=== PATIENT | male | born 1970 | race Caucasian/White ===

== ENCOUNTER 2023-02-21 08:03 | Outpatient (REF) | payer OTHER, SELFPAY ==
--- NOTE | ~2023-02-21 | MR_ITS ---
EXAMINATION: MRI OF THE BRAIN WITHOUT CONTRAST CLINICAL INFORMATION: Thalamic infarction. COMPARISON: MRI scan of the brain [facility] 09/09/2022. TECHNIQUE: MRI of the brain was obtained using routine sequences without contrast. FINDINGS: No diffusion abnormalities are identified to suggest an acute or subacute infarct. No mass effect or midline shift is seen. There is mild commensurate prominence of the ventricles and sulci consistent with diffuse volume loss. There is a lacunar infarct in the left thalamus in the region of the previously demonstrated acute infarct. The study redemonstrates a few scattered foci of hyperintense T2 and FLAIR signal in the periventricular and subcortical white matter, which are nonspecific. No extra-axial fluid collections are seen. The brainstem and cerebellum are normal. No pathologic magnetic susceptibility artifact is identified on the gradient refocused acquisition. The craniovertebral junction, marrow signal, and midline structures are normal. The major intracranial flow-voids at the level of the tribe of [place] are preserved. The dural venous sinus flow-voids are maintained. The mastoid air cells are well-aerated. There is a small retention cyst in the inferior left maxillary sinus. MR/MR head/brain wo con IMPRESSION: 1. There are no acute bleeds or territorial infarcts. No masses are demonstrated. 2. There are chronic microvascular ischemic changes and there is a chronic infarct in the left thalamus. There is diffuse volume loss.
== END 2023-02-21 08:04 | disposition home or self-care (01) ==
LOC: HO.MRI 08:03
PROVIDERS: Visit Provider Psychiatry & Neurology Neurology
DX: I63.9 Cerebral infarction, unspecified (principal)
CPT/HCPCS: 70551

== ENCOUNTER → 2024-02-19 08:00 | Outpatient (BNV) | payer SELFPAY | PROVIDERS: Emergency Provider Emergency Medicine; Visit Provider Radiology Diagnostic Radiology | DX: S22.32XA Fracture of one rib, left side, initial encounter for closed fracture (principal); M54.2 Cervicalgia; R51.9 Headache, unspecified; R22.32 Localized swelling, mass and lump, left upper limb | CPT/HCPCS: 70450; 70486; 71250; 72125; 73130 ==

== ENCOUNTER 2024-02-26 08:15 | Outpatient (REF) | payer SELFPAY ==
--- NOTE | ~2024-02-26 | XR_ITS ---
CLINICAL HISTORY: M79.642 - Pain in left hand 3 view left hand Comparison: CR/SR - XR HAND LT MIN 3V - 02/19/24 08:14 EST Findings: Lucency at the base of the 5th middle phalanx concerning for nondisplaced fracture. Chronic fracture of the 5th metacarpal shaft. Degenerative changes of the interphalangeal joints and radiocarpal joints. No erosions. No radiopaque foreign body. IMPRESSION: Lucency at the base of the 5th middle phalanx concerning for nondisplaced fracture. Correlate for point tenderness This document has been electronically signed by: Gui Arce MD on 02/27/2024 02:45:39
== END 2024-02-26 08:16 | disposition home or self-care (01) ==
LOC: HO.HOSX 08:15
DX: M79.642 Pain in left hand (principal); S62.627A Displaced fracture of middle phalanx of left little finger, initial encounter for closed fracture; R20.2 Paresthesia of skin
CPT/HCPCS: 26740; 73130; 99202

== ENCOUNTER 2024-02-26 08:15 | Outpatient (AMB) | payer OTHER, SELFPAY ==
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
== END 2024-02-26 09:12 | disposition home or self-care (01) ==
DX: S62.627A Displaced fracture of middle phalanx of left little finger, initial encounter for closed fracture (principal)
CPT/HCPCS: 26740; 99204

== ENCOUNTER 2024-05-21 11:55 | Outpatient (REF) | payer OTHER, SELFPAY ==
[2024-05-21 12:50] LABS: Blood Urea Nitrogen 7 mg/dL (9-16); Estimated Glomerular Filt Rate > 60
--- OUTSIDE RECORDS SUMMARY | 2024-05-21 14:04 | XMS_ITS | Clinical Summary ---
Author Organization [facility] Address [address] [place] [address] Care Team Providers Care Assembly Stock Supervisor Name Role Phone ZohaibCarlos whipple ELISABETH Primary Care Provider [phone] Source Comments PLEASE NOTE, if this patient is a minor, it may be UNLAWFUL to discuss sensitive information that is contained in these records (such as FAMILY PLANNING, MENTAL HEALTH or SUBSTANCE ABUSE) with the minor patient's parent or other person without the patient's specific authorization.[facility] Allergies No known active allergies Medications gabapentin (NEURONTIN) 300 mg capsuleIndicatio ns:Sciatica of right side Take 1 Cap by mouth 3 (three) times daily. 90 Cap 0 05/01/2014 Active Active Problems Problem Noted Date Diagnosed Date Right hip pain 05/01/2014 Family History Relation Name Status Comments Father Alive Mother Alive Social History Tobacco Use Types Packs/Day Years Used Date Smoking Tobacco: Every Day Cigarettes 0.5 15 Smokeless Tobacco: Current Tobacco Cessation:Ready to Q uit: Yes; Counseling Given: Yes Alcohol Use Standard Drinks/Week Comments Yes 0 (1 standard drink = 0.6 oz pur e alcohol) socially Social Connections Answer Date Recorded Social Connections and Isolation 0 10/06/2018 Financial Resource Strain Answer Date R ecorded Financial Resource Strain 0 2018 Stress Answer Date Recorded Stress 0 10/06/2018 Physical Activity Answer Date Recorded Physical Activity 0 10/06/2018 Food Insecurity Answer Date Recorded Food 0 10/06/2018 Transportation Needs Answer Date Record ed Transportation 0 10/06/2018 Housing Stability Answer Date Recorded Housing 0 10/06/2018 Safety and Environment Answer Date Andrea rded Safety 0 10/06/2018 Utilities Answer Date Recorded Utilities 0 10/06/2018 Employment Answer Date Recorded Employment 0 10/06/2018 Sex and Gender Information Value Date Recorded Sex Assigned at Not on file Legal Sex Male 12:06 PM PDT Gender Identity Not on file Sexual Orientation Not on file Last Filed Vital Signs Vital Sign Reading Time Taken Comments Blood Pressure 110/80 05/01/2014 1:59 PM EDT Pulse 98 05/01/2014 1:59 PM EDT Temperature 37.1 ??C (98.7 ??F) 05/01/2014 1:59 PM ED T Respiratory Rate 16 05/01/2014 1:59 PM EDT Oxygen Saturation - - Inhaled Oxygen Concentration - - Weight 72.6 kg (160 lb) 05/01/2014 1:59 PM EDT Height 175.3 cm (5' 9 ) 05/01/2014 1:59 PM EDT Body Mass Index 23.63 05/01/2014 1:59 PM EDT Plan of Treatment Not on file Insurance [facility] Member Subscriber Plan / Payer (Ef fective 2014-Present) Name:Isaias Aranda Relation to Subscriber:Self Name:Isaias Aranda Payer ID:[id number] Group ID:Not on file Type:[employer] Address: [address] [place] [id number] GENERIC - DENTAL Member Subscriber Plan / Payer (Ef fective 2017-Present) Name:Isaias Aranda Relation to Subscriber:Self Name:Isaias Aranda Payer ID:[id number] Group ID:Not on file Type:[employer] Address: [facility] [address] [address] Care Teams Assembly Stock Supervisor Relationship Specialty Start Date End Date Carlos Bunn NP [facility] [place] [address] PCP - General 12/20/17
== END 2024-05-21 11:56 | disposition home or self-care (01) ==
LOC: HO.LAB 11:55
PROVIDERS: Visit Provider Psychiatry & Neurology Neurology
DX: G89.0 Central pain syndrome (principal)
CPT/HCPCS: 36415; 82565; 84520

== ENCOUNTER 2024-08-28 13:26 | Outpatient (REF) | payer OTHER, SELFPAY ==
--- NOTE | ~2024-08-28 | CT_ITS ---
EXAMINATION: CT ANGIOGRAM BRAIN, HEAD CLINICAL INFORMATION: Stroke COMPARISON: No prior CT angiography. MR brain 02/21/2023. CT head 02/19/2024. TECHNIQUE: Noncontrast head CT was performed. CTA examination performed via test bolus sequences followed by intravenous administration of 75 mL of Omnipaque 350 intravenous contrast. Helical imaging was performed in the axial plane from the skull base to the vertex. The data was processed at the registered radiologic technologist workstation for generation of MIP sequences. Three-dimensional volume rendered reformatted images were also generated at an offline 3-D workstation. The degree of stenosis determined by NASCET criteria. This CT examination was performed using dose optimization techniques as appropriate, variously including the following: *Automated exposure control *Adjustment of mA and/or kV according to patient size (this includes techniques or standardized protocols for targeted exams where dose is matched to indication/reason for exam; i.e. extremities or head) *Use of iterative reconstruction technique FINDINGS: NONCONTRAST HEAD CT: There is no evidence of intracranial hemorrhage or extra-axial fluid collection. There is no mass effect, or edema. No CT evidence of acute territorial infarct. Ventricles, sulci, and cisterns are normal in size and configuration for patient age. No hydrocephalus. No midline shift. Negative hyperdense MCA sign. Negative subinsular ribbon sign. No significant white matter abnormalities. Globes and orbital contents image normally. No extracranial soft tissue abnormalities. The paranasal sinuses, mastoid air cells, and tympanic cavities are normally aerated. No suspicious bony abnormalities. CTA OF THE BRAIN: -INTRACRANIAL INTERNAL CAROTID ARTERIES: Calcific atherosclerotic disease of the intracranial internal carotid arteries without occlusion or flow-limiting stenosis. -RIGHT ANTERIOR CEREBRAL ARTERY: Normal A1 segment. Normal arborization of the distal segments. -LEFT ANTERIOR CEREBRAL ARTERY: Normal A1 segment. Normal arborization of the distal segments. -ANTERIOR COMMUNICATING ARTERY: Normal. -RIGHT MIDDLE CEREBRAL ARTERY: Normal M1 segment of the MCA without focal stenosis or occlusion. Normal bifurcation. Normal arborization of the distal segments. -LEFT MIDDLE CEREBRAL ARTERY: Normal M1 segment of the MCA without focal stenosis or occlusion. Normal bifurcation. Normal arborization of the distal segments. -RIGHT VERTEBRAL ARTERY V4: Normal in course and caliber. Codominant. Normal PICA branch. -LEFT VERTEBRAL ARTERY V4: Normal in course and caliber. Normal PICA branch. -BASILAR ARTERY: Normal without focal stenosis or occlusion. Normal appearance of the proximal superior cerebellar arteries. Normal basilar tip. -RIGHT POSTERIOR CEREBRAL ARTERY: Normal P1 segment. Normal opacification of the distal CORE WORKER segments. -LEFT POSTERIOR CEREBRAL ARTERY: Normal P1 segment. Normal opacification of the distal CORE WORKER segments. -POSTERIOR COMMUNICATING ARTERIES: Small but present and patent bilaterally. Normal opacification of the superior sagittal, straight, transverse, and sigmoid sinuses. No venous thrombosis. No space-occupying hemorrhage or definite evolving infarct. CT/CT angio head IMPRESSION: NONCONTRAST HEAD CT: 1. No acute intracranial abnormality. No intracranial hemorrhage or mass effect. No CT evidence of acute territorial infarct. CTA HEAD: 1. Normal examination. No evidence of arterial occlusion, flow-limiting stenosis, dissection, or aneurysm. 2. Patent major cortical and dural venous sinuses. Electronically signed by: Dell Ying MD 08/28/2024 04:04 PM EDT
--- OUTSIDE RECORDS SUMMARY | 2024-08-28 13:58 | XMS_ITS | Clinical Summary ---
Author Organization [facility] Address [address] [place] [address] Care Team Providers Care [place] Dental Lab Technician Name Role Phone ZohaibCarlos whipple ELISABETH Primary Care Provider [phone] Source Comments PLEASE NOTE, if this patient [...] 98 05/01/2014 1:59 PM EDT Temperature 37.1 C (98.7 F) 05/01/2014 1:59 PM EDT Respiratory Rate 16 05/01/2014 1:59 PM EDT Oxygen Saturation - - Inhaled Oxygen Concentration - - Weight 72.6 kg (160 lb) 05/01/2014 1:59 PM EDT Height 175.3 cm (5' 9 ) 05/01/2014 1:59 PM EDT Body Mass Index 23.63 05/01/2014 1:59 PM EDT Plan of Treatment Not on file Insurance [facility] ([facility]) Member Subscriber Plan / Payer (Ef fective 2014-Present) Name:Isaias Aranda Relation to Subscriber:Self Name:Isaias Aranda Payer ID:[id number] Group ID:Not on file Type:[employer] Address: [address] [place] [id number] GENERIC - DENTAL Care Teams [facility] Technician Relationship Specialty Start Date End Date Carlos Bunn NP [address] [place] [address] PCP - General 12/20/17
[2024-08-28] MEDS: iohexoL 350 MG/ML 100 ML INFUS..BTL IV (15:33)
[2024-08-29 08:10] LABS: Creatinine POC 1.0 mg/dL (0.5-1.4); GFR POC > 60
== END 2024-08-28 13:27 | disposition home or self-care (01) ==
LOC: HO.CT 13:26
PROVIDERS: PCP Family Medicine; Visit Provider Psychiatry & Neurology Neurology
DX: I63.9 Cerebral infarction, unspecified (principal)
CPT/HCPCS: 70496; 82565; Q9967

== ENCOUNTER → 2024-08-28 14:55 | Outpatient (BNV) | payer OTHER, SELFPAY | PROVIDERS: PCP Family Medicine; Visit Provider Radiology Diagnostic Radiology | DX: I63.9 Cerebral infarction, unspecified (principal) | CPT/HCPCS: 70496 ==

== ENCOUNTER 2024-12-24 14:52 | Outpatient (AMB) | payer OTHER, SELFPAY ==
--- NOTE | 2024-12-24 14:58 | MHC.OFFVIS ---
Intake Visit Reasons: follow up and ct scan Allergies No Known Allergies Allergy (Verified 12/24/24 14:58) Medication List - Last Reconciled 12/24/24 by Martha Fry CNP pregabalin 200 mg PO TID 30 days HPI Comments Details: Right hand and forearm symptoms were about the same, some days better than others. Taking pregabalin 200mg three times a day which may help some. No new or increased weakness. No difficulty swallowing. No falls. In 08/2022, he was trying to climb into his second-floor window having locked himself out. He fell about 12 feet, and had a fracture of his right tibia and fibula that was displaced and needed surgery with a paige, a blowout fracture of the L2 vertebra and some rib fractures, which were thought to be subacute. There is a history of possible alcohol abuse. He says that during the surgery he was told he had a stroke in his left thalamus, which resulted in numbness and paresthesia of his right face and right forearm and hand and the dorsum of his right foot. The face symptoms have been better, and the foot numbness has gone away, but he feels that the right hand and forearm have abnormal sensation with numbness, persistent pain and tingling, freezing and cold sensations sensation and can't move. He says sometimes he can't close his hand. He has tried brief periods of symptomatic treatments with gabapentin, Cymbalta and Lyrica at their lowest doses for about 2 or 3 weeks and then stopped them because he didn't see any improvement. He says that he has never had a stroke before. His medical records from [facility] are not available at this time. [facility] Medical History (Updated 12/24/24 @ 15:02 by Martha Fry CNP) Stroke Thalamic pain syndrome Thalamic infarction Surgical History (Updated 02/26/24 @ 08:56 by PHUC Rivas) Hx of hand surgery History of surgery on lower extremity Social History (Updated 02/26/24 @ 08:52 by PHUC Rivas) Patient Tobacco Use Status: Current everyday Tobacco user Current occupational status: employed Current occupation: [employer], right hand dominant Review of Systems Const Denies chills, Denies daytime sleepiness, Denies difficulty sleeping, Denies fatigue, Denies fever(s), Denies frequent falls, Denies headache(s), Denies increased appetite, Denies poor appetite, Denies snoring, Denies weakness, Denies weight gain and Denies weight loss Eyes Denies loss of vision ENT Denies vertigo, Denies dizziness, Denies headache(s) and Denies neck pain Card Denies chest pain at rest, Denies chest pain with activity, Denies syncope, Denies leg edema, Denies palpitations, Denies dyspnea and Denies dyspnea on exertion Resp Denies cough, Denies dyspnea, Denies dyspnea on exertion and Denies snoring GI Denies abdominal pain, Denies constipation, Denies heartburn, Denies diarrhea and Denies nausea Denies urinary frequency, Denies urinary incontinence and Denies urinary urgency Musc Denies abnormal gait, Denies back pain, Denies myalgias, Denies arthralgias, Denies neck pain, Reports numbness and Reports tingling Neuro Denies abnormal gait, Denies vertigo, Denies dizziness, Denies syncope, Denies frequent falls, Denies headache(s), Denies lack of coordination, Denies loss of vision, Denies memory loss, Reports numbness, Denies Other visual disturbances, Denies restless legs, Denies seizure-like activity, Reports tingling, Denies paresthesias, Denies tremor(s) and Denies weakness Psych Denies anxiety, Denies depression, Denies auditory hallucinations, Denies memory loss and Denies visual hallucinations Endo Denies fatigue and Denies palpitations Physical Exam Const Other: General Appearance:? normal, in no acute distress. Heart:? S1, S2 normal, no murmurs. Lungs:? clear anteriorly and posteriorly. Musculoskeletal:? normal. Extremities:? no edema. Psych:? alert, oriented, cognitive function intact, cooperative with exam. Neuro Other: Abnormal Neurological Findings:?right hemihypesthesia. Mental Status: alert and oriented X 3. Normal attention, orientation, memory, and affect. Cranial Nerves: Pupils are equal, round, and reactive to light. External ocular muscles are intact. Visual dixon are full, no ptosis. Face is symmetrical, no facial weakness or droop. Facial sensations are normal. Tongue protrudes in midline. Palate elevates symmetrically. Shoulder shrugging is normal Motor Examination: Normal muscle tone, bulk and strength. No atrophy or fasciculations. No drift of the extended upper extremities. DTR 2+. Plantars are flexor. Sensory Exam: As above. Coordination: No ataxia. No titubation. Gait Exam: Within normal limits. Cerebellar Signs: [id number] is okay. Extrapyramidal System: No tremor, rigidity with normal facial expressions. No bradykinesia. No bradyphrenia. Normal arm swing and posture. No propulsion or retropulsion. Speech: Normal. Results Reviewed Results Reviewed: [address] [address] [address] Scan Report Signed Patient: Isaias Aranda MR#: [id number] : 1970 Acct:[id number] Age/Sex: 54 / M ADM Date: 08/28/24 Loc: .CT Attending Dr: Sheyla Sánchez MD Ordering Physician: Sheyla Sánchez MD Date of Service: 08/28/24 Procedure(s): CT angio head Accession Number(s): [id number] cc: Sheyla Sánchez MD; Chitra Cummings MD~ Report Number: [id number]: Total DLP = 1412.00 mGy-cm EXAMINATION: CT ANGIOGRAM BRAIN, HEAD CLINICAL INFORMATION: Stroke COMPARISON: No prior CT angiography. MR brain 02/21/2023. CT head 02/19/2024. TECHNIQUE: Noncontrast head CT was performed. CTA examination performed via test bolus sequences followed by intravenous administration of 75 mL of Omnipaque 350 intravenous contrast. Helical imaging was performed in the axial plane from the skull base to the vertex. The data was processed at the radiology ct technologist workstation for generation of MIP sequences. Three-dimensional volume rendered reformatted images were also generated at an offline 3-D workstation. The degree of stenosis determined by NASCET criteria. This CT examination was performed using dose optimization techniques as appropriate, variously including the following: *Automated exposure control *Adjustment of mA and/or kV according to patient size (this includes techniques or standardized protocols for targeted exams where dose is matched to indication/reason for exam; i.e. extremities or head) *Use of iterative reconstruction technique FINDINGS: NONCONTRAST HEAD CT: There is no evidence of intracranial hemorrhage or extra-axial fluid collection. There is no mass effect, or edema. No CT evidence of acute territorial infarct. Ventricles, sulci, and cisterns are normal in size and configuration for patient age. No hydrocephalus. No midline shift. Negative hyperdense MCA sign. Negative subinsular ribbon sign. No significant white matter abnormalities. Globes and orbital contents image normally. No extracranial soft tissue abnormalities. The paranasal sinuses, mastoid air cells, and tympanic cavities are normally aerated. No suspicious bony abnormalities. CTA OF THE BRAIN: -INTRACRANIAL INTERNAL CAROTID ARTERIES: Calcific atherosclerotic disease of the intracranial internal carotid arteries without occlusion or flow-limiting stenosis. -RIGHT ANTERIOR CEREBRAL ARTERY: Normal A1 segment. Normal arborization of the distal segments. -LEFT ANTERIOR CEREBRAL ARTERY: Normal A1 segment. Normal arborization of the distal segments. -ANTERIOR COMMUNICATING ARTERY: Normal. -RIGHT MIDDLE CEREBRAL ARTERY: Normal M1 segment of the MCA without focal stenosis or occlusion. Normal bifurcation. Normal arborization of the distal segments. -LEFT MIDDLE CEREBRAL ARTERY: Normal M1 segment of the MCA without focal stenosis or occlusion. Normal bifurcation. Normal arborization of the distal segments. -RIGHT VERTEBRAL ARTERY V4: Normal in course and caliber. Codominant. Normal PICA branch. -LEFT VERTEBRAL ARTERY V4: Normal in course and caliber. Normal PICA branch. -BASILAR ARTERY: Normal without focal stenosis or occlusion. Normal appearance of the proximal superior cerebellar arteries. Normal basilar tip. -RIGHT POSTERIOR CEREBRAL ARTERY: Normal P1 segment. Normal opacification of the distal ASSOCIATE MEDICAL DIRECTOR segments. -LEFT POSTERIOR CEREBRAL ARTERY: Normal P1 segment. Normal opacification of the distal ASSOCIATE MEDICAL DIRECTOR segments. -POSTERIOR COMMUNICATING ARTERIES: Small but present and patent bilaterally. Normal opacification of the superior sagittal, straight, transverse, and sigmoid sinuses. No venous thrombosis. No space-occupying hemorrhage or definite evolving infarct. CT/CT angio head IMPRESSION: NONCONTRAST HEAD CT: 1. No acute intracranial abnormality. No intracranial hemorrhage or mass effect. No CT evidence of acute territorial infarct. CTA HEAD: 1. Normal examination. No evidence of arterial occlusion, flow-limiting stenosis, dissection, or aneurysm. 2. Patent major cortical and dural venous sinuses. Electronically signed by: Dell Ying MD 08/28/2024 04:04 PM EDT Dictated By: Dell Ying MD Signed By: <Electronically signed by Dell Ying MD in OV> 08/28/24 1604 MRI brain at [facility] 02/2023: 1. There are no acute bleeds or territorial infarcts. No masses are demonstrated. 2. There are chronic microvascular ischemic changes and there is a chronic infarct in the left thalamus. There is diffuse volume loss. Assessment & Plan Assessment & Plan (1) History of stroke with residual effects: Comment: left thalamic stroke 08/2022 Code(s): I69.30 - Unspecified sequelae of cerebral infarction Category: Medical Plan: CTA results reviewed. 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 He was asking if follow up was necessary. He was advised that because he was prescribed a controlled medication from this office, regular follow up every 6 months was needed to continue prescribing medication. Follow up in 6 months or sooner as needed. Coding Level of Care Code Est Pt Level 4 (51874) Diagnoses History of stroke with residual effects I69.30 Thalamic pain syndrome G89.0
== END 2024-12-24 15:23 | disposition home or self-care (01) ==
PROVIDERS: PCP Family Medicine; Visit Provider Registered Nurse
DX: I69.30 Unspecified sequelae of cerebral infarction (principal); G89.0 Central pain syndrome
CPT/HCPCS: 99214

== ENCOUNTER → 2024-12-24 14:52 | Outpatient (BNVA) | payer OTHER, SELFPAY | PROVIDERS: PCP Family Medicine; Visit Provider Registered Nurse | DX: G89.0 Central pain syndrome (principal); I69.30 Unspecified sequelae of cerebral infarction; Z79.899 Other long term (current) drug therapy; F17.200 Nicotine dependence, unspecified, uncomplicated | CPT/HCPCS: 99212 ==